=== PATIENT | female | born 1975 | race Caucasian/White ===

== ENCOUNTER 2021-11-29 14:15 | Emergency (ER) | payer SELFPAY ==
[~2021-11-29] VITALS: Ht 177.8 cm; Wt 109.0 kg
[2021-11-29 14:23] VITALS: BP 118/90
[2021-11-29] MEDS ORDERED: KETOROLAC 15 MG/ML VIAL. IVP ONE (15:00)
[2021-11-29 15:34] LABS: BASO % 1 % (0-3); EOS # 0.1 x10^3/uL (0.0-0.7); EOS % 1 % (0-3); HEMATOCRIT 39.4 % (36.0-47.0); HEMOGLOBIN 13.1 g/dL (12.0-15.5); LYMPH # 2.1 x10^3/uL (1.0-4.8); LYMPH % 29 % (24-48); MEAN CORPUSCULAR HEMOGLOBIN 30 pg (25-35); MEAN CORPUSCULAR HGB CONC 33 g/dL (31-37); MEAN CORPUSCULAR VOLUME 89 fL (79-100); MONO # 0.5 x10^3/uL (0.0-1.1); MONO % 7 % (0-9); NEUT # 4.5 x10^3uL (1.8-7.7); NEUT % 63 % (31-73); PLATELET COUNT 251 x10^3/uL (140-400); RED BLOOD COUNT 4.42 x10^6/uL (3.50-5.40); RED CELL DISTRIBUTION WIDTH 13.8 % (11.5-14.5); WHITE BLOOD COUNT 7.2 x10^3/uL (4.0-11.0)
[2021-11-29 15:47] LABS: CALCIUM 8.4 mg/dL (8.5-10.1); CREATININE 0.7 mg/dL (0.6-1.0); GFR 90.5; POTASSIUM 4.1 mmol/L (3.5-5.1)
[2021-11-29 15:55] LABS: ALBUMIN 3.1 g/dL (3.4-5.0); ALBUMIN/GLOBULIN RATIO 0.9 (1.0-1.7); TOTAL BILIRUBIN 0.4 mg/dL (0.2-1.0); TOTAL PROTEIN 6.4 g/dL (6.4-8.2)
--- NOTE | 2021-11-29 16:00 | RAD ---
EXAM: Pelvic sonogram. HISTORY: Abnormal uterine bleeding. TECHNIQUE: Transabdominal and transvaginal sonographic imaging of the pelvis was performed. COMPARISON: None. FINDINGS: The uterus measures 7.5 x 3.9 x 3.4 cm. There is an IUD within the endometrial cavity. No d istinct endometrial stripe is seen. The right ovary is unremarkable. The left ovary is not seen. Ther e is no left adnexal mass or cyst. There is no pelvic free fluid. There is nabothian cyst within the cervix. IMPRESSION: 1. IUD within the endometrial cavity. The endometrial stripe is not clearly seen. 2. Obscured left ovary and unremarkable right ovary. Electronically signed by: Diamond Baltazar MD (11/29/2021 3:57 PM) [id number]
--- NOTE | 2021-11-29 16:17 | PHYS DOC ---
Past History Additional Past Surgical Histo: Coronary stent, Mirena Alcohol Use: None General Adult EDM: Chief Complaint: VAGINAL BLEEDING HPI: HPI: Patient is a 46 year old female who presents with vaginal bleeding that began yesterday. She reports associated suprapubic pain that is similar to menstrual cramping. Patient states that she bled some yesterday, did not bleed overnight, and then had recurrence of vaginal bleeding today. She has used 2 pads today. Patient states that she has not had a menstrual period in over 14 years. She does report that her Mirena has been due to be removed for over 4 years. 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 Review of Systems: Review of Systems: Constitutional: Denies fever, chills or generalized weakness Eyes: Denies change in visual acuity, visual field deficits or discharge HENT: Denies ear pain, nasal congestion or sore throat Respiratory: Denies cough or shortness of breath Cardiovascular: Denies chest pain, palpitations or edema GI: Denies abdominal pain, nausea, vomiting, bloody stools or diarrhea : See HPI Musculoskeletal: Denies back pain or joint pain Integument: Denies rash or other skin lesion Neurologic: Denies headache, focal weakness or sensory changes Current Medications: Current Meds: Current Medications Medications (Trade) Dose Ordered Sig/[facility] Start Time Stop Time Status Last Admin Dose Admin Ketorolac Tromethamine (Toradol 15mg Vial) 15 mg 1X ONCE 11/29/21 15:00 11/29/21 15:04 DC 11/29/21 15:00 15 MG Allergies: Allergies: Allergies Coded Allergies Type Severity Reaction Last Updated Verified morphine Allergy Unknown 11/29/21 Yes Physical Exam: PE: Constitutional: Well developed, well nourished, no acute distress, non-toxic ap pearance. HENT: Normocephalic, atraumatic, bilateral external ears normal, nose normal. Eyes: EOMI, conjunctiva normal, no discharge. Neck: Normal range of motion, no stridor. Abdomen: Bowel sounds normal, soft, no tenderness, no rebound/guarding, no masses, no pulsatile masses. Skin: Warm, dry, no erythema, no rash. Extremities: No tenderness, no cyanosis, no clubbing, ROM intact, no edema. Neurologic: Alert and oriented x4, no focal deficits noted. Current Patient Data: Labs: Laboratory Tests Test 11/29/21 15:07 White Blood Count 7.2 x10^3/uL (4.0-11.0) Red Blood Count 4.42 x10^6/uL (3.50-5.40) Hemoglobin 13.1 g/dL (12.0-15.5) Hematocrit 39.4 % (36.0-47.0) Mean Corpuscular Volume 89 fL (79-100) Mean Corpuscular Hemoglobin 30 pg (25-35) Mean Corpuscular Hemoglobin Concent 33 g/dL (31-37) Red Cell Distribution Width 13.8 % (11.5-14.5) Platelet Count 251 x10^3/uL (140-400) Neutrophils (%) (Auto) 63 % (31-73) Lymphocytes (%) (Auto) 29 % (24-48) Monocytes (%) (Auto) 7 % (0-9) Eosinophils (%) (Auto) 1 % (0-3) Basophils (%) (Auto) 1 % (0-3) Neutrophils # (Auto) 4.5 x10^3uL (1.8-7.7) Lymphocytes # (Auto) 2.1 x10^3/uL (1.0-4.8) Monocytes # (Auto) 0.5 x10^3/uL (0.0-1.1) Eosinophils # (Auto) 0.1 x10^3/uL (0.0-0.7) Basophils # (Auto) 0.0 x10^3/uL (0.0-0.2) Sodium Level 139 mmol/L (136-145) Potassium Level 4.1 mmol/L (3.5-5.1) Chloride Level 105 mmol/L (98-107) Carbon Dioxide Level 25 mmol/L (21-32) Anion Gap 9 (6-14) Blood Urea Nitrogen 10 mg/dL (7-20) Creatinine 0.7 mg/dL (0.6-1.0) Estimated GFR (Cockcroft-Gault) 90.5 BUN/Creatinine Ratio 14 (6-20) Glucose Level 62 mg/dL (70-99) L Calcium Level 8.4 mg/dL (8.5-10.1) L Total Bilirubin 0.4 mg/dL (0.2-1.0) Aspartate Amino Transferase (AST) 14 U/L (15-37) L Alanine Aminotransferase (ALT) 19 U/L (14-59) Alkaline Phosphatase 85 U/L (46-116) Total Protein 6.4 g/dL (6.4-8.2) Albumin 3.1 g/dL (3.4-5.0) L Albumin/Globulin Ratio 0.9 (1.0-1.7) L Vital Signs: Vital Signs Date Time Temp Pulse Resp B/P (MAP) Pulse Ox O2 Delivery O2 Flow Rate FiO2 11/29/21 14:23 98.0 104 16 118/90 (99) 98 Room Air Radiology/Procedures: Radiology/Procedures: PROCEDURE: TRANSVAGINAL EXAM: Pelvic sonogram. HISTORY: Abnormal uterine bleeding. TECHNIQUE: Transabdominal and transvaginal sonographic imaging of the pelvis was performed. COMPARISON: None. FINDINGS: The uterus measures 7.5 x 3.9 x 3.4 cm. There is an IUD within the endometrial cavity. No distinct endometrial stripe is seen. The right ovary is unremarkable. The left ovary is not seen. There is no left adnexal mass or cyst. There is no pelvic free fluid. There is nabothian cyst within the cervix. IMPRESSION: 1. IUD within the endometrial cavity. The endometrial stripe is not clearly seen. 2. Obscured left ovary and unremarkable right ovary. Electronically signed by: Diamond Baltazar MD (11/29/2021 3:57 PM) [id number] Heart Score: C/O Chest Pain: No Course & Med Decision Making: Course & Med Decision Making Pertinent Labs and Imaging studies reviewed. (See chart for details) Patient is a 46-year-old female has not had a period in over 14 years who presents with vaginal bleeding. Work-up today will include labs, urinalysis, transvaginal ultrasound. Work-up today is largely unremarkable. Patient is instructed to follow-up with gynecology regarding abnormal uterine bleeding. Return precautions were provided. NSAIDs should be taken for pain control. Patient understands and is agreeable to discharge plan. Dragon Disclaimer: Dragon Disclaimer: This electronic medical record was generated, in whole or in part, using a voice recognition dictation system. Departure Departure: Impression: Primary Impression: Abnormal uterine bleeding Additional Impression: Single nabothian cyst Disposition: HOME / SELF CARE / HOMELESS Condition: STABLE Referrals: PCP,NO (PCP) LIDYA STEVENS MD Patient Instructions: Abnormal Uterine Bleeding Additional Instructions: EMERGENCY DEPARTMENT GENERAL DISCHARGE INSTRUCTIONS Thank you for coming to [facility] (ED) today and trusting us with you care. We trust that you had a positive experience in our Emergency Department. If you wish to speak to the department management, you may call the director at [phone]. YOUR FOLLOW UP INSTRUCTIONS ARE FOLLOWS: 1. Follow up with your primary care doctor. If you do not have a primary doctor, please ask for a resource list of physicians or clinics that may be able to assist you with follow up care. 2. The emergency provider has interpreted your imaging studies, if any were ordered. The radiology family development extension specialist also reviewed them. If there is a change in the findings, you will be notified in 48 hours when at all possible. 3. If a lab test or culture has been done, your results will be reviewed and you will be notified if you need a change in treatment. 4. Follow instructions verbalized to you and refer to the printouts if needed. ADDITIONAL INSTRUCTIONS AND INFORMATION: 1. Your care today has been supervised by a physician who is specially trained in emergency care. Many problems require more than one evaluation for a complete diagnosis and treatment. We recommend that you schedule your follow up appointment as recommended to ensure complete treatment of you illness or injury. If you are unable to obtain follow up care and continue to have a pro blem, or if your condition worsens, we recommend that you return to the ED. 2. We are not able to safely determine your condition over the phone nor are we able to give sound medical advice over the phone. For these safety reasons, if you call for medical advice we will ask you to come to the ED for further evaluation. 3. If you have any questions regarding these discharge instructions please call the ED at [phone]. SAFETY INFORMATION: In the interest of safety, wellness, and injury prevention; we encourage you to wear your seat belt, if you smoke; quite smoking, and we encourage family to use a protective helmet for bicycling and other sporting events that present an increased risk for head injury. IF YOUR SYMPTOMS WORSEN OR NEW SYMPTOMS DEVELOP, OR YOU HAVE CONCERNS ABOUT YOUR CONDITION; OR IF YOUR CONDITION WORSENS WHILE YOU ARE WAITING FOR YOUR FOLLOW UP APPOINTMENT; EITHER CONTACT YOUR PRIMARY CARE DOCTOR, THE PHYSICIAN WHOSE NAME AND NUMBER YOU WERE GIVEN, OR RETURN TO THE ED IMMEDIATELY. MERRILL CANTRELL Nov 29, 2021 16:17
[2021-11-29 16:23] LABS: CLARITY,URINE HAZY; COLOR,URINE YELLOW; GLUCOSE,URINE NEG (NEG); NITRITE,URINE NEG (NEG); UROBILINOGEN,URINE 0.2 mg/dL (0.2 mg/dL)
[2021-11-29 16:24] LABS: BACTERIA,URINE FEW /HPF (0-FEW); SQUAMOUS EPITHELIAL CELL,UR MANY /LPF
== END 2021-11-29 16:57 | disposition home or self-care (01) ==
LOC: ER 14:15
DX: N93.8 Other specified abnormal uterine and vaginal bleeding (principal); N88.8 Other specified noninflammatory disorders of cervix uteri; Z88.5 Allergy status to narcotic agent
CPT/HCPCS: 36415; 76830; 80053; 81001; 81025; 85025; 87086; 96374; 99284; J1885

== ENCOUNTER 2022-01-15 10:18 | Emergency (ER) | payer SELFPAY ==
[~2022-01-15] VITALS: Ht 177.8 cm; Wt 113.6 kg
--- NOTE | 2022-01-15 10:40 | PHYS DOC ---
Past History Additional Past Surgical Histo: Coronary stent, Mirena (DOUG GARRETT APRN) Alcohol Use: None (DOUG GARRETT APRN) General Adult EDM: Chief Complaint: CHEST PAIN HPI: HPI: Patient is a 46-year-old female who presents to the emergency department for chest pain that started 1 hour prior to ER arrival. Patient reports midsternal constant chest pain that feels like a pressure that she rates 8 out of 10. No treatment prior to arrival. EMS did administer 324 mg of aspirin. Patient reports that the chest pain is worse with movement. She is reporting shortness of breath. 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 Stent was [facility] at [facility]. Patient denies nausea, vomiting, cough, fevers. (DOUG GARRETT APRN) Review of Systems: Review of Systems: Constitutional: See HPI Respiratory: See HPI Cardiovascular: See HPI GI: See HPI (DOUG GARRETT APRN) Current Medications: Current Meds: Current Medications Medications (Trade) Dose Ordered Sig/Rebecca Start Time Stop Time Status Last Admin Dose Admin Nitroglycerin (Nitrostat) 0.4 mg PRN Q5MIN PRN 01/15/22 10:45 01/16/22 10:44 UNV (DOUG GARRETT APRN) Allergies: Allergies: Allergies Coded Allergies Type Severity Reaction Last Updated Verified morphine Allergy Unknown 11/29/21 Yes (DOUG GARRETT APRN) Physical Exam: PE: Constitutional: Well developed, well nourished, no acute distress, non-toxic appearance. [] HENT: Normocephalic, atraumatic, bilateral external ears normal, oropharynx moist, no oral exudates, nose normal. [] Eyes: PERRL, EOMI, conjunctiva normal, no discharge. [] Neck: Normal range of motion, no tenderness, supple, no stridor. [] Cardiovascular:Heart rate regular rhythm, no murmur [] Lungs & Thorax: Bilateral breath sounds clear to auscultation [] Abdomen: Bowel sounds normal, soft, no tenderness, no masses, obese, no pulsatile masses. [] Skin: Warm, dry, no erythema, no rash. [] Back: No tenderness, normal range of motion Extremities: No tenderness, no cyanosis, no clubbing, ROM intact, no edema. [] Neurologic: Alert and oriented X 3, normal motor function, normal sensory function, no focal deficits noted. [] Psychologic: Affect normal, judgement normal, mood normal. [] (DOUG GARRETT APRN) Current Patient Data: Labs: Laboratory Tests Test 01/15/22 10:19 01/15/22 10:52 01/15/22 10:59 01/15/22 13:34 Bedside Urine HCG, Qualitative hcg negative White Blood Count 6.4 x10^3/uL Red Blood Count 4.41 x10^6/uL Hemoglobin 13.1 g/dL Hematocrit 38.8 % Mean Corpuscular Volume 88 fL Mean Corpuscular Hemoglobin 30 pg Mean Corpuscular Hemoglobin Concent 34 g/dL Red Cell Distribution Width 13.6 % Platelet Count 209 x10^3/uL Neutrophils (%) (Auto) 56 % Lymphocytes (%) (Auto) 35 % Monocytes (%) (Auto) 6 % Eosinophils (%) (Auto) 2 % Basophils (%) (Auto) 1 % Neutrophils # (Auto) 3.6 x10^3uL Lymphocytes # (Auto) 2.3 x10^3/uL Monocytes # (Auto) 0.4 x10^3/uL Eosinophils # (Auto) 0.1 x10^3/uL Basophils # (Auto) 0.0 x10^3/uL Sodium Level 144 mmol/L Potassium Level 3.9 mmol/L Chloride Level 108 mmol/L Carbon Dioxide Level 24 mmol/L Anion Gap 12 Blood Urea Nitrogen 14 mg/dL Creatinine 0.8 mg/dL Estimated GFR (Cockcroft-Gault) 77.6 BUN/Creatinine Ratio 18 Glucose Level 91 mg/dL Calcium Level 8.5 mg/dL Total Bilirubin 0.4 mg/dL Aspartate Amino Transf (AST/SGOT) 16 U/L Alanine Aminotransferase (ALT/SGPT) 22 U/L Alkaline Phosphatase 80 U/L Troponin I High Sensitivity 11 ng/L 11 ng/L Total Protein 5.8 g/dL Albumin 2.7 g/dL Albumin/Globulin Ratio 0.9 Urine Collection Type Clean catch Urine Color Yellow Urine Clarity Clear Urine pH 6.0 Urine Specific [place] >=1.030 Urine Protein Neg Urine Glucose (UA) Neg mg/dL Urine Ketones (Stick) Neg mg/dL Urine Blood Neg Urine Nitrite Neg Urine Bilirubin Neg Urine Urobilinogen Dipstick 0.2 mg/dL Urine Leukocyte Esterase Neg Urine RBC 0 /HPF Urine WBC 1-4 /HPF Urine Squamous Epithelial Cells Many /LPF Urine Bacteria Mod /HPF Urine Opiates Screen Neg Urine Methadone Screen Neg Urine Barbiturates Neg Urine Phencyclidine Screen Neg Urine Amphetamine/Methamphetamine Pos Urine Benzodiazepines Screen Neg Urine Cocaine Screen Neg Urine Cannabinoids Screen Pos Urine Ethyl Alcohol Neg Current Medications Medications (Trade) Dose Ordered Sig/Rebecca Route PRN Reason Start Time Stop Time Status Last Admin Dose Admin Nitroglycerin (Nitrostat) 0.4 mg PRN Q5MIN PRN SL CP RATING > /10 01/15/22 10:45 01/16/22 10:44 01/15/22 11:31 (DOUG GARRETT APRN) EKG: EKG: EKG performed by ER staff at 1024 shows sinus rhythm with rate of 84, QTc 431, no STEMI read by Dr. Khan at 1025 [] (DOUG GARRETT APRN) Radiology/Procedures: Radiology/Procedures: []PROCEDURE: PORTABLE CHEST 1V AP chest. HISTORY: Chest pain Portable AP view was taken of the chest. Lungs are clear. Heart is normal in size. There is no pleural effusion. IMPRESSION: 1. No acute chest disease. Electronically signed by: Stone Ray MD (01/15/2022 11:14 AM) [id number] DICTATED AND SIGNED BY: STONE RAY MD DATE: 01/15/22 1113 CC: DOUG GARRETT APRN; PCP,NO ~ (DOUG GARRETT APRN) Heart Score: C/O Chest Pain: Yes HEART Score for Chest Pain: HEART Score for Chest Pain Response (Comments) Value History Slighlty/Non-Suspicious 0 ECG Nonspecific Repolarizatio 1 Age < 45 0 Risk Factors >3 Risk Factors or Hx CAD 2 Troponin < Normal Limit 0 Total 3 Risk Factors: Risk Factors: DM, Current or recent (<one month) smoker, HTN, HLP, family history of CAD, obesity. Risk Scores: Score 0 - 3: 2.5% MACE over next 6 weeks - Discharge Home Score 4 - 6: 20.3% MACE over next 6 weeks - Admit for Clinical Observation Score 7 - 10: 72.7% MACE over next 6 weeks - Early Invasive Strategies (DOUG GARRETT APRN) Course & Med Decision Making: Course & Med Decision Making Pertinent Labs and Imaging studies reviewed. (See chart for details) [] Patient presents to the emergency department for midsternal chest pain that started 1 hour prior to arrival. Patient has a history of AK with stent placement, on plavix. Work-up in the ER consisted of blood work including troponin, EKG and chest x-ray. Patient was given 324 mg of aspirin by EMS and she was treated with nitroglycerin. She reports that she continues to have mild pain after Nitro administration. Patient will be monitored for serial enzymes. 3-hour troponin was negative. Remainder of her lab work was unremarkable. She was positive for methamphetamines and marijuana. Negative chest x-ray. Patient will be discharged home advised to follow-up with her primary care provider and storekeeper engineering. Her heart score is 3. Her vital signs are stable. I discussed with patient all findings and diagnostic testing as well as the need to follow- up with PCP for further evaluation and treatment or return to the ER if any new or worsening symptoms. Strict return precautions were also discussed at length. Patient voiced understanding and agreement with the plan. Patient is hemodynamically stable at the time of disposition. (DOUG GARRETT APRN) Dragon Disclaimer: Dragon Disclaimer: This electronic medical record was generated, in whole or in part, using a voice recognition dictation system. (DOUG GARRETT APRN) Attending Co-Sign The patient was seen and interviewed as well as examined at the bedside. The chart was reviewed. The case was discussed. Agree with the plan of care. (ELLY KHAN DO) Departure Departure: Impression: Primary Impression: Chest pain Qualified Codes: R07.9 - Chest pain, unspecified Disposition: HOME / SELF CARE / HOMELESS Condition: GOOD Referrals: PCP,NO (PCP) OZZY DEE MD Patient Instructions: Chest Pain (Nonspecific) Additional Instructions: You are seen in the emergency department today for chest pain, at this time it does not appear that you are experiencing acute coronary syndrome. It is possible that your chest pain is musculoskeletal in nature as it is worse with movement. Therefore you can take Tylenol and ibuprofen for pain. Please follow-up with your primary care provider on Monday regarding your ER visit. I would also contact the storekeeper engineering to place a stent to follow-up. Return to the emergency department if you develop chest pain, shortness of breath, high fevers refractory to treatment, intractable nausea or vomiting, dizziness or syncope. DOUG GARRETT TOW PICKER Jan 15, 2022 10:40 ELLY KHAN DO Jan 16, 2022 16:48
[2022-01-15] MEDS ORDERED: NITROGLYCERIN SUBLINGUAL 0.4 MG BOTTLE OF 25. SL PRN (10:45)
--- NOTE | 2022-01-15 11:16 | RAD ---
AP chest. HISTORY: Chest pain Portable AP view was taken of the chest. Lungs are clear. Heart is normal in size. There is no pleura l effusion. IMPRESSION: 1. No acute chest disease. Electronically signed by: Stone Ray MD (01/15/2022 11:14 AM) [id number]
[2022-01-15 12:22] LABS: CALCIUM 8.5 mg/dL (8.5-10.1); CREATININE 0.8 mg/dL (0.6-1.0); GFR 77.6; POTASSIUM 3.9 mmol/L (3.5-5.1)
[2022-01-15 12:24] LABS: BASO % 1 % (0-3); EOS # 0.1 x10^3/uL (0.0-0.7); EOS % 2 % (0-3); HEMATOCRIT 38.8 % (36.0-47.0); HEMOGLOBIN 13.1 g/dL (12.0-15.5); LYMPH # 2.3 x10^3/uL (1.0-4.8); LYMPH % 35 % (24-48); MEAN CORPUSCULAR HEMOGLOBIN 30 pg (25-35); MEAN CORPUSCULAR HGB CONC 34 g/dL (31-37); MEAN CORPUSCULAR VOLUME 88 fL (79-100); MONO # 0.4 x10^3/uL (0.0-1.1); MONO % 6 % (0-9); NEUT # 3.6 x10^3uL (1.8-7.7); NEUT % 56 % (31-73); PLATELET COUNT 209 x10^3/uL (140-400); RED BLOOD COUNT 4.41 x10^6/uL (3.50-5.40); RED CELL DISTRIBUTION WIDTH 13.6 % (11.5-14.5); WHITE BLOOD COUNT 6.4 x10^3/uL (4.0-11.0)
[2022-01-15 12:29] LABS: ALBUMIN 2.7 g/dL (3.4-5.0); ALBUMIN/GLOBULIN RATIO 0.9 (1.0-1.7); TOTAL BILIRUBIN 0.4 mg/dL (0.2-1.0); TOTAL PROTEIN 5.8 g/dL (6.4-8.2)
[2022-01-15 12:37] LABS: AMPHETAMINE/METHAMPHETAMINE POS (NEG); BARBITURATES NEG (NEG); BENZODIAZEPINES NEG (NEG); CANNABINOIDS POS (NEG); COCAINE NEG (NEG); METHADONE NEG (NEG); OPIATES NEG (NEG); PHENCYCLIDINE NEG (NEG)
--- NOTE | 2022-01-15 12:49 | EKG ---
[address] [address] Test Date: 2022-01-15 Test Time: 10:24:55 Pat Name: AILIN WOODRUFF Department: Room: Gender: F Director Counseling Bureau: ALICIA : [id number] Requested By: DOUG GARRETT Order Number: [id number] Reading MD: Phil Galeas Measurements Intervals [place] Rate: 84 P: 20 GA: 142 QRS: 25 QRSD: 82 T: 52 QT: 362 QTc: 431 Interpretive Statements SINUS RHYTHM NORMAL ECG RI6.02 No previous ECG available for comparison Electronically Signed On 01-21-2022 14:10:59 CDT by Phil Galeas
[2022-01-15 13:14] LABS: CLARITY,URINE CLEAR; COLOR,URINE YELLOW; GLUCOSE,URINE NEG (NEG)
[2022-01-15 13:15] LABS: BACTERIA,URINE MOD /HPF (0-FEW); NITRITE,URINE NEG (NEG); RBC,URINE 0 /HPF (0-2); UROBILINOGEN,URINE 0.2 mg/dL (0.2 mg/dL)
[2022-01-15 13:16] LABS: SQUAMOUS EPITHELIAL CELL,UR MANY /LPF
[2022-01-15 14:10] VITALS: BP 120/74
== END 2022-01-15 14:42 | disposition home or self-care (01) ==
LOC: ER 10:18
DX: R07.2 Precordial pain (principal); R06.02 Shortness of breath; I25.2 Old myocardial infarction; Z88.5 Allergy status to narcotic agent
CPT/HCPCS: 36415; 71045; 80053; 80307; 81001; 81025; 84484; 85025; 87077; 87086; 87186; 93005; 99285